=== PATIENT | male | born 1970 | race Caucasian/White ===

== ENCOUNTER → 2017-08-25 11:08 | Outpatient (POV) | payer MEDICAID, SELFPAY | PROVIDERS: PCP Internal Medicine; Visit Provider Internal Medicine | DX: Z00.00 Encounter for general adult medical examination without abnormal findings (principal) ==

== ENCOUNTER → 2018-02-11 15:23 | Outpatient (CLI) | payer MEDICAID, SELFPAY ==
--- NOTE | 2018-02-11 15:27 | XR_ITS ---
XR forearm LT 2V HISTORY: ITS.REASON: Pain ORDERING PHYSICIAN: Obde oFrbes MD PATIENT AGE: 47 years COMPARISON: None FINDINGS: No obvious fracture, dislocation, lytic change or blastic change. Normal mineralization. Unremarkable soft tissues IMPRESSION: Negative forearm
--- NOTE | 2018-02-11 15:27 | XR_ITS ---
XR forearm RT 2V HISTORY: Prior surgery, pain ITS.REASON: Pain ORDERING PHYSICIAN: Obed Forbes MD PATIENT AGE: 47 years COMPARISON: None FINDINGS: There is a bone plate with multiple screws over the mid shaft of the ulna and also one over the distal shaft of the radius. There is mild bowing of the distal radius and ulna medially and dorsally. Callus formation is present at the site of the bone plates consistent with old healed fractures. The screws of the bone plates do not appear to be withdrawn. No acute fracture or bony lytic process evident. Minimal osteophyte formation is noted along the radial head. IMPRESSION: Old healed radius and ulnar fracture status post ORIF as described above
--- NOTE | 2018-02-11 15:27 | XR_ITS ---
XR wrist RT min 3V HISTORY ITS.REASON: Pain ORDERING PHYSICIAN: Obed Forbes MD PATIENT AGE: 47 years Comparison: None FINDINGS: There are mild osteoarthritic changes of the first metacarpal carpal joint. Prior ORIF of the distal radius and midshaft ulna as described in the forearm report. No fracture or dislocation. There is a small well-circumscribed calcific density along the dorsal aspect of the wrist and may be due to an old triquetral fracture. IMPRESSION: 1. No acute finding. 2. Minimal osteoarthritic change of the first metacarpal carpal joint. 3. Suspect old triquetral avulsion fracture
--- NOTE | 2018-02-11 15:27 | XR_ITS ---
XR wrist LT min 3V HISTORY ITS.REASON: Pain ORDERING PHYSICIAN: Obed Forbes MD PATIENT AGE: 47 years Comparison: None FINDINGS: No fracture or dislocation. There is a small sclerotic focus involving the distal aspect of the scaphoid may be due to small bone island. There are minimal osteoarthritic changes of the first carpal metacarpal joint. IMPRESSION: Minimal osteoarthritic change first metacarpal carpal joint. Possible small bone island of the scaphoid.
== END ==
PROVIDERS: Visit Provider Orthopaedic Surgery
DX: R20.2 Paresthesia of skin (principal); M79.632 Pain in left forearm; M79.631 Pain in right forearm; M25.532 Pain in left wrist; M25.531 Pain in right wrist
CPT/HCPCS: 73090; 73110

== ENCOUNTER → 2018-05-10 12:20 | Outpatient (POV) | payer MEDICAID, SELFPAY | PROVIDERS: Visit Provider Specialist | DX: R20.2 Paresthesia of skin (principal) | CPT/HCPCS: 95886; 95908 ==

== ENCOUNTER → 2019-03-02 11:09 | Outpatient (CLI) | payer MEDICAID, SELFPAY ==
--- NOTE | 2019-03-02 11:11 | NM_ITS ---
CARDIOLITE SPECT MYOCARDIAL PERFUSION LEXISCAN, REST AND STRESS: History: Oriented disease, hypertension, hyperlipidemia, tobacco use, family history, shortness of breath Procedure: Patient received a 0.4 mg of intravenous Lexiscan, resting heart rate was 49 bpm resting blood pressure 145/92, with Lexiscan maximum heart rate achieved was 78 bpm which is less than 85% of the maximum predicted heart rate and a blood pressure was 121/82. The scan patient complained of shortness of breath Electrocardiogram: Resting echocardiogram showed sinus bradycardia, mildly before changes, with Lexiscan there is less than 1.[address] segment depression noted from the baseline EKG. The EKG portion of the Lexiscan Myoview is nondiagnostic. Cardiac stress and resting SPECT images: Cardiac stress and resting SPECT images were obtained using technetium 99 Myoview 30.7 mCi stress and 10.4 mCi at rest. Gated SPECT further analysis of segmental wall motion and calculation of the ejection fraction also done. Cardiac stress and resting SPECT images show a fixed defect involving the inferior and posterobasal wall consistent with area of myocardial scarring, without significant kassi-infarct ischemia. Computer derived ejection fraction is 41% with moderate inferior and posterobasal wall hypokinesis. Right ventricle is normal size and contractility. Conclusion: 1. The EKG portion of the Lexiscan Myoview is nondiagnostic. 2. Scintigraphic evidence of myocardial scarring involving the inferior and posterobasal wall, without significant kassi-infarct ischemia, computer derived ejection fraction is 41% with segmental wall motion abnormality described above, right ventricle is normal size and contractility. 3. Abnormal Lexiscan Myoview study.
--- NOTE | 2019-03-02 11:16 | CA_ITS ---
PROCEDURE: 2-D M-mode and color Doppler study INDICATIONS FOR THE TEST: Chest pain X COPD Heart Murmur Tobacco SmokingX Palpitations FatigueX Syncope Edema HypertensionXDiabetes Mellitus Rheumatic Fever SOBXDOEXObesity HyperlipidemiaX Family History HD Additional History CAD PATIENT INFORMATION HEIGHT: 71 WEIGHT:178 GENDER: Male B/P:128/99 2-D/M-MODE INTERPRETATION: 2-D MEASUREMENTS OBSERVED VALUES IN CMS Right Ventricular Dimension (RVDd) 3.0 Interventricular Septum (Thickness)(IVsd) 1.0 Left Ventricular Internal Dimensions(LVIDd) 5.2 Left Ventricular Posterior Wall (Thickness)(LVPWd) 1.0 Aortic Root 4.2 Aortic Cusp Separation 2.3. Left Atrial Dimensions (LAD) 3.1 2D 1. Left atrium is mildly enlarged, left ventricle is normal size, mild concentric left ventricular hypertrophy, visually estimated ejection fraction of 55% with no regional wall motion abnormality. 2. The right atrium and right ventricle are mildly enlarged with normal contractility. 3. The aortic root is enlarged measuring 4.2 cm, aortic valve is minimally thickened and fibrosed. 4. Mitral and tricuspid valve is grossly normal. 5. The pulmonic valve is poorly visualized. 6. No significant pericardial effusion noted. DOPPLER INTERROGATION: Doppler interrogation of the aortic, mitral and tricuspid valvular presence of mild mitral and tricuspid regurgitation tricuspid regurgitation jet velocity is inadequate for calculation of the right ventricular systolic pressure, grade 1 diastolic dysfunction seen with tissue Doppler evidence of raised left atrial pressure. CONCLUSION: 1. Biatrial enlargement, normal left ventricular size, mild concentric left ventricular hypertrophy, visually estimated ejection fraction 55% with no regional wall motion abnormality, grade 1 diastolic dysfunction seen with tissue Doppler evidence of raised left atrial pressure. 2. Mildly enlarged aortic root measuring 4.2 cm, aortic valve is thickened and calcified, there is no aortic stenosis or aortic insufficiency. 3. Mild mitral and tricuspid regurgitation 4. No significant pericardial effusion noted.
--- NOTE | 2019-03-02 12:29 | HMH.ITSHM ---
Current Home Medications as stated by this patient Frank Vang or outbound call center representative. []ASA ROPINIROLE NASAL SPRAY CLOPIDOGREL BUPROPION ATORVASTATIN ALBUTEROL
== END ==
PROVIDERS: Visit Provider Nurse Practitioner Family
DX: I25.10 Atherosclerotic heart disease of native coronary artery without angina pectoris (principal); R06.02 Shortness of breath; I11.9 Hypertensive heart disease without heart failure; E78.5 Hyperlipidemia, unspecified; M79.673 Pain in unspecified foot
CPT/HCPCS: 78452; 93017; 93306; A9502; J2785

== ENCOUNTER → 2019-04-06 10:55 | Outpatient (CLI) | payer MEDICAID, SELFPAY ==
--- NOTE | 2019-04-06 11:01 | XR_ITS ---
PROCEDURE: XR CHEST 2V CLINICAL HISTORY: to elvaulate for TB COMPARISON: [facility] CT CHEST W/O CONTRAST from 07/30/2017 FINDINGS: The cardiomediastinal silhouette and pulmonary vascularity are within normal limits. The lungs are clear without infiltrates, suspicious nodules, or pleural effusions. Chronic wedge compression changes are present at L1. Prior kyphoplasty. IMPRESSION: No acute finding. No evidence of active tuberculosis Dictated by: Reji Encinas MD 04/06/2019 12:09 Signed by: <Electronically signed by Reji Encinas MD in [place]> 04/06/2019 12:09
[2019-04-06 15:40] LABS: Free T4 (Free Thyroxine) 0.86 ng/dl (0.76-1.46)
== END ==
PROVIDERS: Visit Provider Internal Medicine
DX: R05 Cough (principal); R06.02 Shortness of breath; I20.9 Angina pectoris, unspecified; I25.10 Atherosclerotic heart disease of native coronary artery without angina pectoris; I11.9 Hypertensive heart disease without heart failure; E78.2 Mixed hyperlipidemia; J44.9 Chronic obstructive pulmonary disease, unspecified; R00.1 Bradycardia, unspecified; R61 Generalized hyperhidrosis; R91.1 Solitary pulmonary nodule; F17.200 Nicotine dependence, unspecified, uncomplicated
CPT/HCPCS: 36415; 71046; 84439; 84443

== ENCOUNTER → 2020-08-20 13:55 | Outpatient (CLI) | payer OTHER, SELFPAY ==
--- NOTE | 2020-08-20 13:58 | CA_ITS ---
APPROVED REPORT EXAM: Comprehensive 2D, Doppler, and color-flow Echocardiogram Hog Feeder: Martha Cadet RVT Ht: 5 ft 11 in Wt: 195lbs BSA: 2.09 BP: 133/88 mmHg Indications: CAD,STENT,COPD,HTN,HLD 2D Dimensions LVOT 2.10 cm (M/F) 1.5-2.5 M-Mode Dimensions LA Diam 4.27 cm (1.9-4.0) LVDd 5.34 cm (3.5-5.7) Ao Diam 3.84 cm (2.0-3.7) LVDs 3.91 cm (3.5-5.7) IVSd 1.06 cm (0.6-1.1) PWd 0.91 cm (0.6-1.1) EF (Teich) 51.90% FS 26.80% EDV (Teich) 137.70 mL ESV (Teich) 66.30 mL LV Diastology E Decel Time 223.00 (160-240 msec) E/A Ratio 1.2 MED E' 7.80 (< 7 cm/sec) E'/MED E' Ratio 8.79 (>14) LAT E' 12.80 (<10 cm/sec) E/LAT E' Ratio 5.36 (>14) Mitral Valve MV E Max Adrian. 69.00 (40-130 cm/s) MV A Velocity 56.00 (40-130 cm/s) E/A Ratio 1.23 MV Decel. Time 223.00 (160-240 ms) MV PHT 65.00 ms Pulmonary Valve PV Peak Velocity 66.00 (50-150 cm/s) Tricuspid Valve TR P. Velocity 175.00 cm/s RAP Estimate 10.00 mmHg RVSP 22.20 mmHg Left Ventricle Left atrium is mildly enlarged, left ventricle is normal size, mild concentric left ventricular hypertrophy, visually estimated ejection fraction 50% with no regional wall motion abnormality, diastolic parameters are inconclusive. Right Ventricle Right atrium and right ventricle are mildly enlarged with normal contractility. Aortic Valve Aortic valve is minimally thickened and fibrosed, there is no aortic stenosis or aortic insufficiency. Mitral Valve Mitral valve is grossly normal, there is mild mitral regurgitation. Tricuspid Valve Tricuspid valve grossly normal, there is mild tricuspid regurgitation. Tricuspid regurgitation jet velocity is inadequate for calculation of the right ventricular systolic pressure. Pulmonic Valve Pulmonic valve is poorly visualized. Great Vessels Aortic root is normal size. Pericardium No significant pericardial effusion noted. Conclusion 1. Mild biatrial enlargement, normal left ventricular size, mild concentric left ventricular hypertrophy, visually estimated ejection fraction 50% with no regional wall motion abnormality, diastolic parameters are inconclusive. 2. Mildly enlarged right ventricle with normal contractility. 3. Mild mitral and tricuspid regurgitation. 4. No significant pericardial effusion noted. Electronically signed by : Fito Castrejon, 08/21/2020 06:35:58
[2020-08-20 15:24] LABS: Basophils # 0.1 K/mm3 (0-0.2); Basophils % 0.7 % (0.1-2.0); Eosinophils # 0.2 K/mm3 (0.0-0.4); Eosinophils % 1.4 % (0.1-12.0); Hematocrit 49.1 % (42.0-52.0); Hemoglobin 16.3 g/dL (14.1-18.0); Lymphocytes # 2.7 K/mm3 (0.7-4.5); Lymphocytes % 16.9 % (10-50); Mean Corpuscular HGB Conc 33.2 g/dL (31.8-35.4); Mean Corpuscular Hemoglobin 30.8 pg (27.0-31.2); Mean Corpuscular Volume 92.6 fl (80-94); Mean Platelet Volume 7.8 fl (7.4-10.4); Monocytes # 0.5 K/mm3 (0.1-1.0); Monocytes % 3.2 % (1.7-9.3); Neutrophils # 12.2 K/mm3 (1.8-7.8); Neutrophils % 77.8 % (37.0-80.0); Platelet Count 387 K/mm3 (142-424); Red Blood Count 5.31 M/mm3 (4.60-6.20); White Blood Count 15.7 K/mm3 (4.8-10.8)
[2020-08-20 15:25] LABS: MANUAL DIFFERENTIAL MANUAL DIFFERENTIAL (MANUAL DIFF)
[2020-08-20 16:06] LABS: Alanine Aminotransferase 18 U/L (12-78); Albumin Level 4.7 g/dl (3.5-5.0); Alkaline Phosphatase 157 U/L (38-126); Anion Gap 14.1 mEq/L (5-15); Aspartate Amino Transferase 24 U/L (17-59); Bilirubin,Direct 0.2 mg/dl (0.0-0.4); Bilirubin,Indirect 0.3 mg/dL (0.0-0.9); Bilirubin,Total 0.5 mg/dl (0.2-1.3); Bilirubin,Unconjugated 0.2 mg/dL (0.0-1.1); Blood Urea Nitrogen 14 mg/dl (9-20); Calcium 10.3 mg/dl (8.4-10.2); Carbon Dioxide 26 mmol/L (22.0-30.0); Chloride 103 mmol/L (98-107); Chol/HDL Ratio 5.9 (1-3.5); Cholesterol 226 mg/dl (140-200); Estimated Glomerular Filt Rate 102 ml/min (>60); GFR (African American) 123 ML/MIN (>60); Glucose 97 mg/dl (74-100); HDL Cholesterol 38 mg/dl (40-60); Potassium 4.1 mmoL/L (3.5-5.1); Sodium 139 mmol/L (136-145); Total Protein,Serum 8.2 g/dl (6.3-8.2); Triglycerides 148 mg/dl (30-150); VLDL Cholesterol 30 mg/dL (0-40)
[2020-08-20 16:16] LABS: Lymphocytes % 24 % (10-50); Monocytes % 7 % (2-9); Neutrophils % 69 % (42-76); Platelet Estimate Normal; RBC Morphology Normal; Total Cells Counted 100
[2020-08-20 16:24] LABS: Free T4 (Free Thyroxine) 1.23 ng/dl (0.78-2.19)
[2020-08-20 16:38] LABS: Thyroid Stimulating Hormone 0.51 uIU/mL (0.465-4.68)
== END ==
PROVIDERS: Visit Provider Urology
DX: I25.10 Atherosclerotic heart disease of native coronary artery without angina pectoris (principal); R94.31 Abnormal electrocardiogram [ECG] [EKG]; E78.5 Hyperlipidemia, unspecified; I11.9 Hypertensive heart disease without heart failure; R61 Generalized hyperhidrosis
CPT/HCPCS: 36415; 80048; 80061; 80076; 84439; 84443; 85007; 85025; 93306